=== PATIENT | female | born 1965 | race Hispanic/Latino ===

== ENCOUNTER 2017-12-28 12:02 | Emergency (ER) | payer OTHER ==
[~2017-12-28] VITALS: Ht 157.5 cm; Wt 65.8 kg
[2017-12-28] MEDS ORDERED: ONDANSETRON HCL INJ 2 MG/ML VIAL IV STA (12:21)
[2017-12-28] MEDS ORDERED: SODIUM CHLORIDE 0.9% 1000ML 1,000 ML IV STA (12:21)
[2017-12-28] MEDS ORDERED: MORPHINE SULFATE 4 MG/ML SYR IV STA (12:21)
[2017-12-28] MEDS ORDERED: CEFTRIAXONE SOD 1 GM VIAL IV SCH (12:30)
[2017-12-28 12:37] LABS: BASOPHILS % 0.4 % (0.0-1.0); EOSINOPHILS % 0.4 % (0.0-6.0); HEMATOCRIT 38.6 % (34.2-44.1); HEMOGLOBIN 12.7 g/dL (12.0-16.0); LYMPHOCYTES # (AUTO) 0.3 (1.0-3.2); LYMPHOCYTES % 7.1 % (18.0-39.1); MEAN CORPUSCULAR HEMOGLOBIN 26.3 pg (28-32); MEAN CORPUSCULAR HGB CONC 32.9 g/dL (31-35); MEAN CORPUSCULAR VOLUME 80.1 fL (81-99); MONOCYTES % 0.2 % (4.4-11.3); NEUTROPHILS # (AUTO) 4.3 (2.1-6.9); PLATELET COUNT 293 x10e3/uL (140-360); RED BLOOD COUNT 4.82 x10e6/uL (3.6-5.1); RED CELL DISTRIBUTION WIDTH 12.6 % (11.7-14.4)
[2017-12-28 12:38] LABS: BILIRUBIN,URINE NEGATIVE (NEGATIVE); KETONES,URINE NEGATIVE (NEGATIVE); LEUKOCYTE ESTERASE ,URINE 2+ (NEGATIVE); URINE UROBILINOGEN 0.2 mg/dL (0.2 - 1)
[2017-12-28 12:39] LABS: CLARITY,URINE SL CLOUDY (CLEAR); COLOR,URINE YELLOW (YELLOW); NITRITE,URINE POSITIVE (NEGATIVE); PROTEIN,URINE DIPSTICK 1+ (NEGATIVE)
[2017-12-28] MEDS ORDERED: MORPHINE SULFATE 2 MG/ML SYR ONE (12:54)
[2017-12-28 13:10] LABS: EPITHELIAL CELLS,URINE MANY /LPF
[2017-12-28 13:11] LABS: WBC,URINE (MAN) >50 /HPF (0-5)
[2017-12-28 13:12] LABS: BACTERIA,URINE MANY /HPF
[2017-12-28 13:18] LABS: ANION GAP 15.9 mmol/L (8-16); BLOOD UREA NITROGEN 16 mg/dL (7-26); BUN/CREATININE RATIO 21 (6-25); CALCIUM 9.8 mg/dL (8.4-10.2); CARBON DIOXIDE 28 mmol/L (22-29); CHLORIDE 102 mmol/L (98-107); CREATININE, SERUM 0.77 mg/dL (0.57-1.11); EST GLOMERULAR FILTRATION RATE > 60 ML/MIN (60-); GLUCOSE 97 mg/dL (74-118); SODIUM 143 mmol/L (136-145)
[2017-12-28 13:24] LABS: POTASSIUM 2.9 mmol/L (3.5-5.1)
--- NOTE | 2017-12-28 13:28 | Diagnostic Imaging Report ---
EXAM: CT Abdomen and Pelvis WITHOUT contrast INDICATION: Left flank pain COMPARISON: KUB from 08/18/2013 TECHNIQUE: Abdomen and pelvis were scanned utilizing a multidetector helical scanner from the lung base to the pubic symphysis without administration of IV contrast. Absence of intravenous contrast decreases sensitivity for detection of focal lesions and vascular pathology. Coronal and sagittal reformations were obtained. Routine protocol was performed. IV CONTRAST: None. ORAL CONTRAST: Water RADIATION DOSE: Total DLP: 371.5 mGy*cm Estimated effective dose: (DLP x 0.015 x size factor) mSv COMPLICATIONS: None FINDINGS: LINES and TUBES: None. LOWER THORAX: Unremarkable HEPATOBILIARY: No focal hepatic lesions. No biliary ductal dilation. GALLBLADDER: No radio-opaque stones or sludge. No wall thickening. SPLEEN: No splenomegaly. PANCREAS: No focal masses or ductal dilatation. ADRENALS: No adrenal nodules KIDNEYS/URETERS: No cystic or solid mass lesions. 4 mm calcified stone in the mid ureter at the level of superior endplate of L4 vertebral body, resulting in mild hydroureteronephrosis. Additional 2 mm calcified stone in the upper pole of the left kidney. No calcified stones in the right collecting system. GI TRACT: No abnormal distention, wall thickening, or evidence of bowel obstruction. Appendix is normal. PELVIC ORGANS/BLADDER: Unremarkable. LYMPH NODES: No lymphadenopathy. VESSELS: Unremarkable. PERITONEUM / RETROPERITONEUM: No free air or fluid. BONES: Unremarkable. SOFT TISSUES: Bilateral breast implants. IMPRESSION: 1. Mild obstructing left mid ureteral stone. Additional 2 mm stone in the upper pole of the left kidney. 2. No calcified stones in the right collecting system. Signed by: Dr. Amy Rankin M.D. on 12/28/2017 1:25 PM
[2017-12-28] MEDS ORDERED: POTASSIUM CHLORIDE 20 MEQ TAB CR PO STA (13:49)
[2017-12-28 14:49] LABS: LYMPHOCYTES % (MANUAL) 12 % (19-48); MONOCYTES % (MANUAL) 3 % (3.4-9.0); NEUTROPHILS % (MANUAL) 83 % (40-74)
[2017-12-28 14:50] LABS: PLATELET ESTIMATE ADEQUATE; PLATELET MORPHOLOGY COMMENT NORMAL; RBC MORPHOLOGY COMMENT NORMAL
[2017-12-28 15:02] VITALS: BP 96/55
== END 2017-12-28 15:33 | disposition home or self-care (01) ==
LOC: ER 12:02
DX: R10.12 Left upper quadrant pain (principal); N20.1 Calculus of ureter; E87.6 Hypokalemia
CPT/HCPCS: 36415; 74176; 80048; 81001; 85025; 96360; 96374; 99284; J0696; J2270; J2405; J7030

== ENCOUNTER 2019-12-01 08:42 | Emergency (ER) | payer OTHER ==
[~2019-12-01] VITALS: Ht 157.5 cm; Wt 65.8 kg
--- NOTE | 2019-12-01 09:13 | NUR ---
DR HENNING IN TO ASSESS CLIENT.
[2019-12-01] MEDS ORDERED: SODIUM CHLORIDE 0.9% 1000ML 1,000 ML IV STA (09:17)
[2019-12-01] MEDS ORDERED: MORPHINE SULFATE INJ 4 MG/ML INJ 1ML IV NR (09:26)
[2019-12-01] MEDS ORDERED: KETOROLAC TROMETHAMINE 30 MG/ML VIAL IV NR (09:26)
[2019-12-01] MEDS ORDERED: ONDANSETRON HCL INJ 2MG/ML 2ML 2 MG/ML VIAL IV NR (09:27)
[2019-12-01 09:51] LABS: BASOPHILS % 0.2 % (0.0-1.0); HEMATOCRIT 47.5 % (34.2-44.1); HEMOGLOBIN 15.4 g/dL (12.0-16.0); LYMPHOCYTES # (AUTO) 0.8 (1.0-3.2); MEAN CORPUSCULAR HGB CONC 32.4 g/dL (31-35); MEAN CORPUSCULAR VOLUME 83.3 fL (81-99); MONOCYTES # (AUTO) 0.6 (0.2-0.8); MONOCYTES % 12.9 % (4.4-11.3); NEUTROPHILS # (AUTO) 3.4 (2.1-6.9); NEUTROPHILS % 69.5 % (38.7-80.0); PLATELET COUNT 290 x10e3/uL (140-360); RED CELL DISTRIBUTION WIDTH 13.9 % (11.7-14.4)
[2019-12-01 10:08] LABS: BILIRUBIN,URINE NEGATIVE (NEGATIVE); CLARITY,URINE CLEAR (CLEAR); COLOR,URINE YELLOW (YELLOW); KETONES,URINE NEGATIVE (NEGATIVE); LEUKOCYTE ESTERASE ,URINE NEGATIVE (NEGATIVE); NITRITE,URINE NEGATIVE (NEGATIVE); PROTEIN,URINE DIPSTICK NEGATIVE (NEGATIVE); URINE UROBILINOGEN 0.2 mg/dL (0.2 - 1)
[2019-12-01 10:09] LABS: BACTERIA,URINE RARE /HPF; EPITHELIAL CELLS,URINE FEW /LPF; RBC,URINE 0-5 /HPF (0-5); WBC,URINE (MAN) 0-5 /HPF (0-5)
[2019-12-01 10:12] LABS: ALANINE AMINOTRANSFERASE 21 IU/L (0-55); ALBUMIN 4.2 g/dL (3.5-5.0); ALBUMIN/GLOBULIN RATIO 1.1 (0.8-2.0); ALKALINE PHOSPHATASE 73 IU/L (40-150); ANION GAP 17.5 mmol/L (8-16); BLOOD UREA NITROGEN 13 mg/dL (7-26); BUN/CREATININE RATIO 18 (6-25); CALCIUM 9.2 mg/dL (8.4-10.2); CARBON DIOXIDE 23 mmol/L (22-29); CHLORIDE 101 mmol/L (98-107); CREATININE, SERUM 0.72 mg/dL (0.57-1.11); EST GLOMERULAR FILTRATION RATE > 60 ML/MIN (60-); GLUCOSE 101 mg/dL (74-118); POTASSIUM 4.5 mmol/L (3.5-5.1); SODIUM 137 mmol/L (136-145)
--- NOTE | 2019-12-01 10:26 | Diagnostic Imaging Report ---
CT LUMBAR SPINE WO HISTORY: Low back pain COMPARISON: CT of the abdomen and pelvis 12/28/17 and 12/01/2019 TECHNIQUE: Axial CT images of the lumbar spine were obtained without contrast. Coronal and sagittal reconstructions obtained from the axial data. One or more of the following dose reduction techniques were used: Automated exposure control, adjustment of the mA and/or kV according to patient size, and/or utilization of iterative reconstruction technique. DISCUSSION: There are 5 nonrib-bearing lumbar vertebral bodies. Lumbar lordosis is preserved. There is no significant scoliosis or subluxation. No fracture, compression deformity, or destructive osseous lesion is seen. No gross spinal canal mass is seen. The paravertebral and paraspinal soft tissues are unremarkable. The disc spaces are preserved with minimal spondylotic changes. No gross canal or foraminal stenosis is seen. Mild bilateral sacroiliac degenerative changes are present as well. Mild bilateral nephrolithiasis is partially imaged. IMPRESSION: 1. No acute osseous abnormalities. 2. Minimal spondylosis. Signed by: Dr. Chilo Coronado M.D. on 12/01/2019 10:24 AM
--- NOTE | 2019-12-01 10:30 | Diagnostic Imaging Report ---
EXAMINATION: CT of the abdomen and pelvis without contrast. TECHNIQUE: Spiral CT images of the abdomen and pelvis were performed from the lung bases to the lesser trochanters. No intravenous contrast was given per renal stone protocol. Coronal and sagittal reformatted images were obtained. COMPARISON: CT abdomen and pelvis without contrast 12/28/2017 CLINICAL HISTORY:Low back pain, right lower quadrant and right leg pain. DISCUSSION: ABSENCE OF INTRAVENOUS CONTRAST DECREASES SENSITIVITY FOR DETECTION OF FOCAL LESIONS AND VASCULAR PATHOLOGY. ABDOMEN/PELVIS: LOWER THORAX: Subsegmental atelectasis in the dependent lower lobes, right greater than left. No pleural or pericardial effusion. Coronary artery calcifications. Bilateral breast implants. HEPATOBILIARY:No focal hepatic lesions. No biliary ductal dilation. The gallbladder is normal. SPLEEN: No splenomegaly. PANCREAS: No focal masses or ductal dilatation. ADRENALS: No adrenal nodules. KIDNEYS/URETERS: 2-3 mm nonobstructing left upper pole renal calculus is again noted and is unchanged in position. Left ureteral calculus seen on the comparison study is no longer visualized. Punctate nonobstructing right renal calculus in the interpolar region, new compared to prior area no right hydronephrosis or ureteral calculus. No gross solid or cystic renal mass lesion. PELVIC ORGANS/BLADDER: The urinary bladder is nondistended and poorly evaluated. The uterus is anteflexed and appears normal. No adnexal mass. PERITONEUM/RETROPERITONEUM: No ascites. No pneumoperitoneum. LYMPH NODES: No pelvic sidewall, retroperitoneal, or mesenteric lymphadenopathy. VESSELS: Limited evaluation without intravenous contrast. The abdominal aorta is nonaneurysmal. 2 left renal arteries and a single right renal artery. GI TRACT: The large bowel shows no evidence of distention or wall thickening. The descending colon is collapsed and poorly evaluated. The appendix is normal. No small bowel dilatation to suggest obstruction. BONES AND SOFT TISSUES: No osseous destructive lesions; bilateral breast implants. Subcutaneous gas in the gluteal regions likely reflects sequela of medication administration IMPRESSION: No acute intra-abdominal or pelvic CT abnormalities. Bilateral nonobstructing renal calculi. Atherosclerotic vascular disease. Signed by: Dr. Hugo Stephen M.D. on 12/01/2019 10:28 AM
--- NOTE | 2019-12-01 10:48 | Diagnostic Imaging Report ---
EXAMINATION: CHEST 2 VIEWS INDICATION: Back pain, cough COMPARISON: None FINDINGS: LINES/TUBES:None LUNGS:The lungs are moderately inflated. No focal consolidation or pulmonary edema. PLEURA:No pleural effusion or pneumothorax. MEDIASTINUM:The cardiomediastinal silhouette appears normal in size and shape. BONES/SOFT TISSUES:No acute osseous injury. ABDOMEN:No free air under the diaphragm. IMPRESSION: No focal pneumonia or pulmonary edema. Signed by: Ronel Talamantes MD on 12/01/2019 10:45 AM
--- OUTSIDE RECORDS SUMMARY | 2019-12-01 19:35 | XMS REPORT ---
Author Author [facility] Address Unknown Phone Unavailable Care Team Providers Care Commercial Maintenance Technician Name Role Phone Ernestina HENNING Unavailable Unavailable Sadia VINCENT Unavailable Unavailable Problems This patient has no known problems. Allergies, Adverse Reactions, Alerts This patient has no known allergies or adverse reactions. Medications This patient has no known medications. Results Test Description Test Time Test Comments Text Results Atomic Results Result Comments CHEST 2 VIEWS 2019-12-01 10:44:00 [place] [address] Patient Name: LESVIA GARCIA MR #: [id number] : 1965 Age/Sex: 54/F Req #: [id number] Adm Physician: Ordered by: GEO HENNING MD Report #: [id number] Location: ER Room/Bed: Procedure: [id number] DX/CHEST 2 VIEWS Exam Date: 12/01/19 Exam Time: 956 REPORT STATUS: Signed EXAMINATION: CHEST 2 VIEWS INDICATION: Back pain, co ugh COMPARISON: None FINDINGS: LINES/TUBES:None LUNGS:The lungs are moderately inflated. No focal consolidation or pulmonary edema. PLEURA:No pleural effusion or pneumothorax. MEDIASTINUM:The cardiomediastinal silhouette appears normal in size and shape. BONES/SOFT TISSUES:No acute osseous injury. ABDOMEN:No free air under the diaphragm. IMPRESSION: No focal pneumonia or pulmonary edema. Signed by: Laci Watkins MD on 12/01/2019 10:45 AM Dictated By: LACI WATKINS MD 104 Transcribed By: ANGELICA on 12/01/191044 COPY TO: GEO HENNING MD CT LUMBAR SPINE WO 2019-12-01 10:19:00 [place] [address] Patient Name: LESVIA GARCIA MR #: [id number] : 1965 Age/Sex: 54/F Req #: [id number] Adm Physician: Ordered by: GEO HENNING MD Report #: [id number] Location: ER Room/Bed: Procedure: [id number] CT/CT LUMBAR SPINE WO Exam Date: 12/01/19 Exam Time: 0956 REPORT STATUS: Signed CT LUMBAR SPINE WO HISTORY: Low back pain COMPARI SON: CT of the abdomen and pelvis 12/28/17 and 12/01/2019 TECHNIQUE: Axial CT images of the lumbar spine were obtained without contrast. Coronal and sagittal reconstructions obtained from the axial data. One or more of the following dose reduction techniques were used: Automated exposure control, adjustment of the mA and/or kV according to patient size, and/or utilization of iterative reconstruction technique. DISCUSSION: There are 5 nonrib-bearing lumbar vertebral bodies. Lumbar lordosis is preserved. There is no significant scoliosis or subluxation. No fracture, compression deformity, or destructive osseous lesion is seen. No gross spinal canal mass is seen. The paravertebral and paraspinal soft tissues are unremarkable. The disc spaces are preserved with minimal spondylotic changes. No gross canal or foraminal stenosis is seen. Mild bilateral sacroiliac degenerative changes are present as well. Mild bilateral nephrolithiasis is partially imaged. IMPRESSION: 1. No acute osseous abnormalities. 2. Minimal spondylosis. Signed by: Dr. Chilo Coronado M.D. on 12/01/2019 10:24 AM Dictated By: CHILO CORONADO MD 1024 Transcribed By: ANGELICA on 12/01/19 1024 COPY TO: GEO HENNING MD CT ABDOMEN/PELVIS WO 2019-12-01 10:14:00 [place] [address] Patient Name: LESVIA GARCIA MR #: [id number] : 1965 Age/Sex: 54/F Req #: [id number] Adm Physician: Ordered by: GEO HENNING MD Report #: [id number] Location: ER Room/Bed: Procedure: [id number] CT/CT ABDOMEN/PELVIS WO Exam Date: 12/01/19 Exam Time: 0956 REPORT STATUS: Signed EXAMINATION: CT of the abdomen and pelvis without contr ast. TECHNIQUE: Spiral CT images of the abdomen and pelvis were performed from the lung bases to the lesser trochanters. No intravenous contrast was given per renal stone protocol. Coronal and sagittal reformatted images were obtained. COMPARISON: CT abdomen and pelvis without contrast 12/28/2017 CLINICAL HISTORY:Low back pain, right lower quadrant and right leg pain. DISCUSSION: ABSENCE OF INTRAVENOUS CONTRAST DECREASES SENSITIVITY FOR DETECTION OF FOCAL LESIONS AND VASCULAR PATHOLOGY. ABDOMEN/PELVIS: LOWER THORAX: Subsegmental atelectasis in the dependent lower lobes, right greater than left. No pleural or pericardial effusion. Coronary artery calcifications. Bilateral breast implants. HEPATOBILIARY:No focal hepatic lesions. No biliary ductal dilation. The gallbladder is normal. SPLEEN: No splenomegaly. PANCREAS: No focal masses or ductal dilatation. ADRENALS: No adrenal nodules. KIDNEYS/URETERS: 2-3 mm nonobstructing left upper pole renal calculus is again noted and is unchanged in position. Left ureteral calculus seen on the comparison study is no longer visualized. Punctate nonobstructing right renal calculus in the interpolar region, new compared to prior area no right hydronephrosis or ureteral calculus. No gross solid or cystic renal mass lesion. PELVIC ORGANS/BLADDER: The urinary bladder is nondistended and poorly evaluated. The uterus is anteflexed and appears normal. No adnexal mass. PERITONEUM/RETROPERITONEUM: No ascites. No pneumoperitoneum. LYMPH NODES: No pelvic sidewall, retroperitoneal, or mesenteric lymphadenopathy. VESSELS: Limited evaluation without intravenous contrast. The abdominal aorta is nonaneurysmal. 2 left renal arteries and a single right renal artery. GI TRACT: The large bowel shows no evidence of distention or wall thickening. The descending colon is collapsed and poorly evaluated. The appendix is normal. No small bowel dilatation to suggest obstruction. BONES AND SOFT TISSUES: No osseous destructive lesions; bilateral breast implants. Subcutaneous gas in the gluteal regions likely reflects sequela of medication administration IMPRESSION: No acute intra-abdominal or pelvic CT abnormalities. Bilateral nonobstructing renal calculi. Atherosclerotic vascular disease. Signed by: Dr. Margo Simon M.D. on 12/01/2019 10:28 AM Dictated By: MARGO SIMON MD 1028 Transcribed By: ANGELICA on 12/01/19 1028 COPY TO: GEO HENNING MD CT ABDOMEN/PELVIS [place] [address] Patient Name: LESVIA GARCIA MR #: [id number] : 1965 Age/Sex: 52/F Req #: [id number] Adm Physician: Ordered by: VONNIE BARKLEY [employer] Report #: [id number] Location: Room/Bed: Procedure: [id number] CT/CT ABDOMEN/PELVIS WO Exam Date: 12/28/17 Exam Time: 1230 REPORT STATUS: Signed EXAM: CT Abdomen and Pelvis WITHOUT contrast INDICATION: Left flank pain COMPARISON: KUB from 08/18/2013 TECHNIQUE: Abdomen and pelvis were scanned utilizing a multidetector helical scanner from the lung base to the pubic symphysis without administration of IV contrast. Absence of intravenous contrast decreases sensitivity for detection of focal lesions and vascular pathology. Coronal and sagittal reformations were obtained. Routine protocol was performed. IV CONTRAST: None. ORAL CONTRAST: Water RADIATION DOSE: Total DLP: 371.5 mGy*cm Estimated effective dose: (DLP x 0.015 x size factor) mSv COMPLICATIONS: None FINDINGS: LINES and TUBES: None. LOWER THORAX: Unremarkable HEPATOBILIARY: No focal hepatic lesions. No biliary ductal dilation. GALLBLADDER: No radio-opaque stones or sludge. No wall thickening. SPLEEN: No splenomegaly. PANCREAS: No focal masses or ductal dilatation. ADRENALS: No adrenal nodules KIDNEYS/URETERS: No cystic or solid mass lesions. 4 mm calcified stone in the mid ureter at the level of superior endplate of L4 vertebral body, resulting in mild hydroureteronephrosis. Additional 2 mm calcified stone in the upper pole of the left kidney. No calcified stones in the right collecting system. GI TRACT: No abnormal distention, wall thickening, or evidence of bowel obstruction. Appendix is normal. PELVIC ORGANS/BLADDER: Unremarkable. LYMPH NODES: No lymphadenopathy. VESSELS: Unremarkable. PERITONEUM / RETROPERITONEUM: No free air or fluid. BONES: Unremarkable. SOFT TISSUES: Bilateral breast implants. IMPRESSION: 1. Mild obstructing left mid ureteral stone. Additional 2 mm stone in the upper pole of the left kidney. 2. No calcified stones in the right collecting system. Signed by: Dr. Ortega Alves M.D. on 12/28/2017 1:25 PM Dictated By: ORTEGA ALVES MD 1325 Transcribed By: ANGELICA on 12/28/17 1325 COPY TO: VONNIE BARKLEY [employer]
== END 2019-12-01 11:06 | disposition home or self-care (01) ==
LOC: ER 08:42
DX: M54.41 Lumbago with sciatica, right side (principal); R10.31 Right lower quadrant pain; R05 Cough; Z87.442 Personal history of urinary calculi
CPT/HCPCS: 36415; 71046; 72131; 74176; 80053; 81001; 85025; 87086; 99284; J1885; J2270; J2405; J7030

== ENCOUNTER → 2021-07-22 | Day surgery (SDC) | payer OTHER ==
[~2021-07-22] MED LIST: HYDROCHLOROTHIA25 MG PO; HYOSCYAMINE SULFATE 0.5 MG/ML INJ ONE
[2021-07-22 12:10] VITALS: BP 122/73
== END | disposition home or self-care (01) ==
LOC: OR 08:05
PROVIDERS: ATTEND Internal Medicine Gastroenterology
DX: Z12.11 Encounter for screening for malignant neoplasm of colon (principal); D12.0 Benign neoplasm of cecum; K64.8 Other hemorrhoids; F41.9 Anxiety disorder, unspecified; Z01.812 Encounter for preprocedural laboratory examination; Z20.822 Contact with and (suspected) exposure to COVID-19; Z87.442 Personal history of urinary calculi
CPT/HCPCS: 45385; J1980; U0002; 45380; 45384

== ENCOUNTER 2021-07-24 09:59 | Emergency (ER) | payer OTHER ==
[~2021-07-24] VITALS: Ht 160 cm; Wt 70.3 kg
[~2021-07-24 09:59] MED LIST changes: -HYOSCYAMINE SULFATE 0.5 MG/ML INJ ONE
== END 2021-07-24 11:40 | disposition home or self-care (01) ==
LOC: FSED 10:17
DX: R10.12 Left upper quadrant pain (principal); N20.0 Calculus of kidney; K76.0 Fatty (change of) liver, not elsewhere classified
CPT/HCPCS: 74176; 80048; 80076; 81003; 85025; 99283